=== PATIENT | male | born 1990 | race African-American/Black ===

== ENCOUNTER 2024-03-07 00:36 | Emergency (ER) | payer OTHER, SELFPAY ==
[2024-03-07 00:40] VITALS: BP 138/92; PULSE 94; TEMP 36.7; O2SAT 98; BMI 37.7
--- NOTE | 2024-03-07 01:10 | ED.EYEPROB1 ---
HPI - Eye Problem General Chief complaint: Eye Problems Stated complaint: LT EYE PAIN/BWC Time Seen by Provider: 03/07/24 00:56 Source: patient Mode of arrival: walk-in Limitations: no limitations History of Present Illness HPI Narrative: states box dust got into his left eye at work about 24 hours ago. was seen at nursing station. eye was irrigated and felt better. Tonight returned to work and again exposed to box dust. not as much. swelling of the left upper eye lid. Does not feel there is any thing in his eye. Eye is not watery or red. Eye feels a little sore and he can see normally Related Data Allergies Allergy/AdvReac Type Severity Reaction Status Date / Time No Known Drug Allergies Allergy Verified 03/07/24 00:50 Review of Systems ROS Status of ROS 10 or more systems reviewed and unremarkable except as noted in history and below PFSH PFSH Social History Little interest or pleasure in doing things: not at all Feeling down, depressed, or hopeless: not at all Exam Constitutional Vital Signs, click to edit/add: Last Vital Signs Temp 98.1 F 03/07/24 00:40 Pulse 94 H 03/07/24 00:40 Resp 18 03/07/24 00:40 BP 138/92 H 03/07/24 00:40 Pulse Ox 98 03/07/24 00:40 O2 Del Method Room Air 03/07/24 00:40 Common normals: no apparent distress, average body habitus, oriented x3, no limitations, healthy appearing, alert and well nourished [facility] Common normals: normocephalic and head/scalp atraumatic Other: mild swelling left upper eyelid. minor tenderness Eye Common normals: PERRL, EOMs intact bilaterally and conjunctivae normal Eyelid: eyelid abnormal (mild swelling left upper eyelid) Eye images: 1. swelling 2. swelling Neck & C-Spine Common normals: full ROM Respiratory Common normals: normal respiratory effort, no retractions and no use of accessory muscles Cardio Common normals: regular rate, regular rhythm, S1 normal heart sound and S2 normal heart sound Extremity Common normals: normal to inspection and full ROM Neuro Common normals: oriented x3, CN's II-XII intact bilaterally and moves all extremities Psych Appearance: grossly normal Course Vital Signs Vital signs: Vital Signs Temperature 98.1 F 03/07/24 00:40 Pulse Rate 94 H 03/07/24 00:40 Respiratory Rate 18 03/07/24 00:40 Blood Pressure 138/92 H 03/07/24 00:40 Pulse Oximetry 98 03/07/24 00:40 Oxygen Delivery Method Room Air 03/07/24 00:40 Temperature 98.1 F 03/07/24 00:40 Pulse Rate 94 H 03/07/24 00:40 Respiratory Rate 18 03/07/24 00:40 Blood Pressure 138/92 H 03/07/24 00:40 Pulse Oximetry 98 03/07/24 00:40 Oxygen Delivery Method Room Air 03/07/24 00:40 MDM - Eye Problem MDM Narrative Medical decision making narrative: describes box dust getting into eye over 24 hours ago at work. Rinsed out and felt normal. eye a little sore tonight enroute to work. Noticed more swelling of the eye at work and nursing concerned something in the eye. He denies FB sensation in the eye and exam is C/W this as there is no erythema, tearing of the eye. Does have mild swelling of the upper eyelid that may represent early sty formation or cellulitis. will treat with e. mycin ointment and augmentin and recommend close follow up Discharge Plan Discharge Chief Complaint: Eye Problems Clinical Impression: Infected eye lid Patient Disposition: Home, Self-Care Print Language: Italian Instructions: Blepharitis (ED) Additional Instructions: have the eye rechecked in the next 1-2 days. recheck sooner if increasing pain and swelling Referrals: Physician,Non-Staff, MD [Primary Care Provider] - 1 week Discharge Date/Time: 03/07/24 01:43
[2024-03-07] MEDS: ERYTHROMYCIN OP OINT 0.5% 1 GM TUBE OP (01:23)
[2024-03-07] MEDS: AMOXICILLIN/POT CLAV 875-125 MG TABLET 1 TAB PO (01:24)
== END 2024-03-07 01:43 | disposition home or self-care (01) ==
PROVIDERS: Emergency Provider Internal Medicine
DX: H01.004 Unspecified blepharitis left upper eyelid (principal)
CPT/HCPCS: 99283

== ENCOUNTER 2024-11-04 00:04 | Emergency (ER) | payer OTHER, SELFPAY ==
[2024-11-04 00:07] VITALS: BP 132/84; PULSE 106; TEMP 36.8; O2SAT 98; BMI 37.7
--- OUTSIDE RECORDS SUMMARY | 2024-11-04 00:21 | XMS_ITS | CCD ---
Author Organization [facility] Care Team Providers Care Undercutter Name Role Phone Yassine Crews Admitting Unavailable Yassine Crews Attending Unavailable NO FAMILY, PHYSICIAN Primary Care Unavailable NO FAMILY, PHYSICIAN Primary Care Unavailable Rom Hayes Admitting Unavailable Rom Hayes Attending Unavailable Yassine Crews Admitting Unavailable Yassine Crews Attending Unavailable NO FAMILY, PHYSICIAN Primary Care Unavailable NO FAMILY, PHYSICIAN Primary Care Provider Unava ilable ISHAN Hayes Emergency Provider [phone] Medications Current Medications Medication Drug Class(es) Dates Sig (Normalized) Sig (Original) acetaminophen 300 mg / butalbital 50 mg / caffeine 40 mg oral capsule (1 source) Barbiturate, Central Nervous System Stimulant, Methylxanthine Start: 05-14-2022 take 1 capsule by mouth every six hours Butalbital-Acetam inophen-Caff (Fioricet) 50-300-40 mg capsule Active 1 CAP PO Q6H 12 3 May 14, 2022 12:00am erythromycin 0.005 mg/mg ophthalmic ointment (1 source) Macrolide, Macrolide Antimicrobial Start: 01-30-2020 Erythromycin Active 1 APPLIC OPHTHALMIC Q4H 3.5 January 29, 2020 11:00pm ondansetron 4 mg disintegrating oral tablet (1 source) Serotonin-3 Receptor Antagonist Start: 05-14-2022 take 4 mg by mouth four times daily Ondansetron Active 4 MG PO Four times daily May 14, 2022 12:00am Problems Problem Classification Problem Date Documented Da te Episodic/Chronic Headache; including migraine (1 source) Headache; Translations: [Headache] 05-14-2022 Episodic Headache; including migraine (1 source) Headache; including migraine; Translations: [Headache, unspecified] Onset: 05-14-2022 Influenza (1 source) Influenza due to Influenza A virus; Translations: [Influenza due to other identified influenza virus with other respiratory manifestations] 05-14-2022 Episodic Other eye disorders (1 source) Edema of eyelid; Translations: [Edema of unspecified eye, unspecified eyelid] 01-30-2020 Episodic Other eye disorders (1 source) Conjunctival hyperemia; Translations: [Conjunctival hyperemia, unspecified eye] 01-30-2020 Episodic Unclassified (1 source) Z20.822 - Contact with and (suspected) exposure to COVID-19; Translations: [Z20.822 - Contact with and (suspected) exposure to COVID-19] Onset: 06-30-2021 Results Test Name Value Interpretation Reference Range Facility COVID-19 / Flu A/B / RSV PCR on 05-15-2022 SARS-CoV-2 (COVID-19) RNA VIKAS+probe Ql (Unsp spec) Results called at 2309 on 05/14/22 COVID-19 Cepheid Result Negative for SARS-CoV-2 RNA by RT-PCR Flu A Cepheid Result Positive for Flu A RNA by RT-PCR Flu B Cepheid Result Negative for Flu B RNA by RT-PCR RSV Cepheid Result Negative for RSV RNA by RT-PCR COVID19 Blank Space Reference: Negative COVID19 Blank Space Cepheid Disclaimer The [employer]epFierce [employer] Frugalid Xpert Xpress CoV-2/Flu/RSV Plus has Cepheid Disclaimer not been FDA cleared or approved; this test has Cepheid Disclaimer been authorized by FDA under an EUA for use by Cepheid Disclaimer authorized laboratories; this test has been Cepheid Disclaimer authorized only for the simultaneous qualitative Cepheid Disclaimer detection and differentiation of nucleic acids from Cepheid Disclaimer SARS-CoV-2, influenza A, influenza B, and Cepheid Disclaimer respiratory syncytial virus (RSV), and not for any Cepheid Disclaimer other viruses or pathogens; and this test is only Cepheid Disclaimer authorized for the duration of the declaration that Cepheid Disclaimer circumstances exist justifying the authorization of Cepheid Disclaimer emergency use of in vitro diagnostic tests for Cepheid Disclaimer detection and/or diagnosis of COVID-19 under Cepheid Disclaimer Section 564(b)(1) of the Act, 21 U.S.C. 360bbb- Cepheid Disclaimer 3(b)(1), unless the authorization is terminated or Cepheid Disclaimer revoked sooner. PERFORMED BY: [place] [address] PATHOLOGIST FLAVORING MAKER DEANGELO TRINH M.D. Normal [facility] Comment on above: Performed By: #### C OVID19 FLU RSV, CEPHEID NEG #### [facility] [address] [place] [address] Cepheid COVID PCR Negativeon 05-15-2022 SARS-CoV-2 (COVID-19) RNA VIKAS+probe Ql (Unsp spec) Negative Normal Negative [facility] Comment on above: Result Comment: This is a duplicate Cepheid Xpert Xpress CoV-2/Flu/RSV Plus RNA by RT-PCR result to be used for statistical tracking purpose only. PERFORMED BY: [place] [address] PATHOLOGIST FLAVORING MAKER DEANGELO TRINH M.D. Performed By: #### C OVID19 FLU RSV, CEPHEID NEG #### [facility] [address] [place] [address] COVID CepheidOrdered By: Jude Hayes on 05-14-2022 SARS-CoV-2 (COVID-19) Ab IA Ql Negative Negative [facility] Comment on above: This is a duplicate Cepheid Xpert Xpress CoV-2/Flu/RSV Plus RNA by RT-PCR result to be used for statistical tracking purpose only. SARS-CoV-2 (COVID-19) RNA VIKAS+probe Ql (Unsp spec) [facility] COVID-19 Lab Corpon 06-30-19 SARS-CoV-2 (COVID-19) RNA VIKAS+probe Ql (Unsp spec) Indeterminate Critically abnormal Not Detecte [facility] Comment on above: Order Comment: Healt hcare Worker?: N Result Comment: Inde terminate We are unable to reliably determine a result for the specimen due to the inconsistent amplification of all of the required SARS-CoV-2 components from the specimen submitted. If clinically indicated, please recollect an additional specimen for testing. This nucleic acid amplification test was developed and its performance characteristics determined by [employer]. Nucleic acid amplification tests include RT- PCR and TMA. This test has not been FDA cleared or approved. This test has been authorized by FDA under an Emergency Use Authorization (EUA). This test is only authorized for the duration of time the declaration that circumstances exist justifying the authorization of the emergency use of in vitro diagnostic tests for detection of SARS-CoV-2 virus and/or diagnosis of COVID-19 infection under section 564(b)(1) of the Act, 21 U.S.C. 360bbb-3(b) (1), unless the authorization is terminated or revoked sooner. When diagnostic testing is negative, the possibility of a false negative result should be considered in the context of a patient's recent exposures and the presence of clinical signs and symptoms consistent with COVID-19. An individual without symptoms of COVID-19 and who is not shedding SARS-CoV-2 virus would expect to have a negative (not detected) result in this assay. Performed at: [address] [id number] Meat Cutter: Jose Lynn PhD, Phone: [phone] --- 07/05/21 [facility] --- COVID-19 LC previously reported as: A Indeterminate We are unable to reliably determine a result for the specimen due to the inconsistent amplification of all of the required SARS-CoV-2 components from the specimen submitted. If clinically indicated, please recollect an additional specimen for testing. This nucleic acid amplification test was developed and its performance characteristics determined by [employer]. Nucleic acid amplification tests include RT- PCR and TMA. This test has not been FDA cleared or approved. This test has been authorized by FDA under an Emergency Use Authorization (EUA). This test is only authorized for the duration of time the declaration that circumstances exist justifying the authorization of the emergency use of in vitro diagnostic tests for detection of SARS-CoV-2 virus and/or diagnosis of COVID-19 infection under section 564(b)(1) of the Act, 21 U.S.C. 360bbb-3(b) (1), unless the authorization is terminated or revoked sooner. When diagnostic testing is negative, the possibility of a false negative result should be considered in the context of a patient's recent exposures and the presence of clinical signs and symptoms consistent with COVID-19. An individual without symptoms of COVID-19 and who is not shedding SARS-CoV-2 virus would expect to have a negative (not detected) result in this assay. Performed at: [facility] [employer] [id number] Meat Cutter: Jose Lynn PhD, Phone: [phone] PERFORMED BY: [address] [address] PATHOLOGIST FLAVORING MAKER DEANGELO TRINH M.D. Performed By: #### C ORONAVIRUS #### [facility] , COVID-19 [facility] 06-22-20 21 SARS-CoV-2 (COVID-19) RNA VIKAS+probe Ql (Unsp spec) Not detected Normal Not Detected [facility] Comment on above: Order Comment: Healt hcare Worker?: N Result Comment: This nucleic acid amplification test was developed and its performance characteristics determined by [employer]. Nucleic acid amplification tests include RT- PCR and TMA. This test has not been FDA cleared or approved. This test has been authorized by FDA under an Emergency Use Authorization (EUA). This test is only authorized for the duration of time the declaration that circumstances exist justifying the authorization of the emergency use of in vitro diagnostic tests for detection of SARS-CoV-2 virus and/or diagnosis of COVID-19 infection under section 564(b)(1) of the Act, 21 U.S.C. 360bbb-3(b) (1), unless the authorization is terminated or revoked sooner. When diagnostic testing is negative, the possibility of a false negative result should be considered in the context of a patient's recent exposures and the presence of clinical signs and symptoms consistent with COVID-19. An individual without symptoms of COVID-19 and who is not shedding SARS-CoV-2 virus would expect to have a negative (not detected) result in this assay. PERFORMED BY: [facility] [place] [address] PATHOLOGIST FLAVORING MAKER DEANGELO TRINH M.D. Performed By: #### C ORONAVIRUS #### [facility] , Vital Signs Date Time Vital Sign Value Performing Clinician Facility 05-14-2022 21:37-0500 Body height 180.34 cm PHYSICIAN NO [facility] 05-14-2022 21:37-0500 Body temperature 100.2 [degF] PHYSICIAN NO [facility] 05-14-2022 21:37-0500 Body weight 134.85 kg PHYSICIAN NO [facility] 05-14-2022 21:37-0500 Diastolic blood pressure 92 mm[Hg] PHYSICIAN NO [facility] 05-14-2022 21:37-0500 Heart rate 118 /min PHYSICIAN NO [facility] 05-14-2022 21:37-0500 Respiratory rate 20 /min PHYSICIAN NO [facility] 05-14-2022 21:37-0500 SaO2% (BldA) [Mass fraction] 95 % PHYSICIAN NO [facility] 05-14-2022 21:37-0500 Systolic blood pressure 141 mm[Hg] PHYSICIAN NO [facility] Encounters Encounter Date Encounter Type Care Provider Facility Start: 05-14-2022 End: 05-15-2022 Emergency department patient visit PHYSICIAN NO [facility] Facility:[facility] Start: 05-14-2022 End: 05-14-2022 Emergency department patient visit PHYSICIAN NO [facility] Start: 06-30-2021 End: 06-30-2021 ambulatory Yassine Crews Facility:[facility] Start: 06-22-2021 End: 06-22-2021 ambulatory Yassine Crews Facility:[facility] Procedures Date Procedure Procedure Detail Performing Clinician SARS-CoV-2, Influenza & RSV (PCR) PHYSICIAN NO FAMILY Plan of Treatment Date Care Activity Detail Author Patient Education Headache, Adul t ED Flu, Adult ED [facility] Work Phone: Patient referral [facility] Work Phone: Payers Date Payer Category Payer Self-pay 2021 Unknown [id number] Unknown [id number] Unknown [id number] Unknown [id number] Social History Date Type Detail Facility Start: 05-14-2022 Tobacco smoking stat us [facility] Never smoked tobacco (finding) [facility] Start: 1990 Sex Assigned At Male [facility] Evaluation note Note Date & Type Note Facility Evaluation note No assessment information availa ble [facility] Work Phone: Summary Purpose Family History No Family History Records Found Advance Directives Advance Directive Response Recorded Date/ Time Advance Directives No January 29 6:54am Chief Complaint and Reason for Visit Chief Complaint Headache Additional Source Comments (unrecognized sect ion and content) No Status Records Found INFORMATION SOURCE (unrecogn ized section and content) DATE CREATED AUTHOR 05/14/2022 [facility] Care Teams (unrecognized sec tion and content) Team Status: Inactive Member Role Status Dates PHYSICIAN NO FAMILY Primary Care Provider Active Rom Hayes PA-C Emergency Provider Active Team Status: Active Member Role Status Dates PHYSICIAN NO FAMILY Primary Care Provider Active Goals (unrecognized section and content) Goals may be documented in a n alternate section FOR RECORDS PERTAINING TO PATIENTS WHO ARE OR HAVE BEEN ENROLLED IN A CHEMICAL DEPENDENCY/SUBSTANCEABUSE PROGRAM, SOME INFORMATION MAY BE OMITTED. This clinical summary was aggregated from multiple sources. Caution should be exercised in using it in the provision of clinical care. This summary normalizes information from multiple sources, and as a consequence, information in this document may materially change the coding, format and clinical context of patient data. In addition, data may be omitted in some cases. CLINICAL DECISIONS SHOULD BE BASED ON THE PRIMARY CLINICAL RECORDS. [facility]. provides no warranty or guarantee of the accuracy or completeness of information in this document.
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
[2024-11-04] MEDS: BACITRACIN OINTMENT 28.4 GM TUBE 1 APPLIC TOPICAL (00:44)
[2024-11-04] MEDS: CEPHALEXIN 500 MG CAPSULE PO (00:45)
== END 2024-11-04 00:53 | disposition home or self-care (01) ==
PROVIDERS: Emergency Provider Emergency Medicine
DX: T25.221A Burn of second degree of right foot, initial encounter (principal); X16.XXXA Contact with hot heating appliances, radiators and pipes, initial encounter
CPT/HCPCS: 99283